=== PATIENT | female | born 1955 | race African-American/Black ===

== ENCOUNTER 2023-08-06 10:03 | Inpatient (IN) | payer MEDICARE, OTHER ==
[~2023-08-06] VITALS: Ht 167.6 cm; Wt 88.0 kg
[2023-08-06] MEDS ORDERED: IBUPROFEN 600 MG TABLET ONE (10:25)
[2023-08-06] MEDS: IBUPROFEN 400 MG TABLET PO ONE (10:30)
[2023-08-06 11:50] LABS: BASOPHILS % (AUTO) 0.2 % (0.0-2.0); EOSINOPHILS # (AUTO) 0.2 K/uL (0.0-0.7); EOSINOPHILS % (AUTO) 1.7 % (0.0-6.0); HEMATOCRIT 37 % (33-45); HEMOGLOBIN 12.2 g/dL (11.5-14.8); LYMPHOCYTES # (AUTO) 1.2 K/uL (0.8-4.8); LYMPHOCYTES % (AUTO) 13.2 % (20.0-44.0); MEAN CORPUSCULAR HEMOGLOBIN 30 PG (26.0-33.0); MEAN CORPUSCULAR HGB CONC 33 g/dl (31.0-36.0); MEAN CORPUSCULAR VOLUME 91 fL (82-100); MONOCYTES # (AUTO) 0.5 K/uL (0.1-1.30); NEUTROPHILS # (AUTO) 7.4 K/uL (1.8-8.9); NEUTROPHILS % (AUTO) 79.9 % (43.0-81.0); PLATELET COUNT (AUTO) 121 K/uL (150-450); RED BLOOD CELL COUNT(AUTO) 4.11 MIL/uL (4.0-5.2); RED CELL DISTRIBUTION WIDTH 14.5 % (11.5-15.0); WHITE BLOOD COUNT (AUTO) 9.2 K/uL (4.3-11.0)
[2023-08-06 11:58] LABS: CALCIUM, SERUM 8.3 mg/dL (8.5-10.1); CREATININE 0.9 mg/dL (0.6-1.3)
[2023-08-06] MEDS ORDERED: CT SWABBABLE VALVE TRANS SET 1 EA INFUS.SET MC ONE (12:19)
[2023-08-06] MEDS ORDERED: IOHEXOL-300 100 ML VIAL IV ONE (12:19)
[2023-08-06] MEDS ORDERED: IV NS 0.9% 250 ML IV ONE (12:19)
[2023-08-06] MEDS ORDERED: POTASSIUM CHLORIDE 20 MEQ TAB.PRT.SR PO ONE (12:31)
[2023-08-06] MEDS: POTASSIUM CHLORIDE 20 MEQ TAB.PRT.SR PO ONE (12:57)
[2023-08-06] MEDS: predniSONE 20 MG TABLET PO ONE (13:59)
[2023-08-06] MEDS ORDERED: predniSONE 20 MG TABLET ONE (13:59)
[2023-08-06] MEDS ORDERED: IPRATROPIUM NEB FS 0.5 MG/2.5 ML AMPUL.NEB ONE (14:07)
[2023-08-06] MEDS ORDERED: ALBUTEROL FS 2.5 MG/3 ML VIAL.NEB ONE (14:07)
[2023-08-06 14:12] VITALS: O2SAT 96
[2023-08-06] MEDS: ALBUTEROL FS 2.5 MG/3 ML VIAL.NEB CONTNEB ONE (14:12)
[2023-08-06] MEDS: IPRATROPIUM NEB FS 0.5 MG/2.5 ML AMPUL.NEB NEB ONE (14:12)
[2023-08-06 14:27] VITALS: O2SAT 100
[2023-08-06 14:28] VITALS: O2SAT 100
[2023-08-06] MEDS ORDERED: ACETAMINOPHEN 325 MG TABLET PO PRN (14:30)
[2023-08-06] MEDS ORDERED: MAG HYDROX/AL HYDROX/SIMETH 30 ML UDC PO PRN (14:30)
[2023-08-06] MEDS ORDERED: ONDANSETRON HCL/PF 4 MG/2 ML VIAL IVP PRN (14:30)
[2023-08-06] MEDS ORDERED: MAGNESIUM HYDROXIDE 30 ML UDC PO PRN (14:30)
[2023-08-06] MEDS ORDERED: Z GUARD REMEDY 4 OZ OINT TP PRN (14:30)
[2023-08-06 14:38] VITALS: O2SAT 100
[2023-08-06] MEDS ORDERED: METF-442 PO (14:43)
[2023-08-06] MEDS: IV NS 0.9% 1,000 ML IV PRN (15:00)
[2023-08-06] MEDS: CEFTRIAXONE 1 G in IV D5W 50 ML IV SCH (15:01)
[2023-08-06] MEDS: AZITHROMYCIN 500 MG in IV D5W 250 ML IV SCH (15:29)
[2023-08-06 16:00] VITALS: BP 152/88; TEMP 99; O2SAT 100
[2023-08-06] MEDS: ENOXAPARIN SODIUM 40 MG/0.4 ML DISP.SYRIN SQ SCH (17:57)
[2023-08-06 20:00] VITALS: BP 119/106; TEMP 98.1; O2SAT 95
[2023-08-07 07:16] LABS: BASOPHILS % (AUTO) 0.1 % (0.0-2.0); HEMATOCRIT 34 % (33-45); HEMOGLOBIN 11.6 g/dL (11.5-14.8); LYMPHOCYTES # (AUTO) 1.3 K/uL (0.8-4.8); LYMPHOCYTES % (AUTO) 15.3 % (20.0-44.0); MEAN CORPUSCULAR HEMOGLOBIN 30 PG (26.0-33.0); MEAN CORPUSCULAR HGB CONC 34 g/dl (31.0-36.0); MEAN CORPUSCULAR VOLUME 90 fL (82-100); MONOCYTES # (AUTO) 0.5 K/uL (0.1-1.30); MONOCYTES % (AUTO) 6.3 % (2.0-12.0); NEUTROPHILS # (AUTO) 6.4 K/uL (1.8-8.9); NEUTROPHILS % (AUTO) 78.3 % (43.0-81.0); PLATELET COUNT (AUTO) 126 K/uL (150-450); RED BLOOD CELL COUNT(AUTO) 3.82 MIL/uL (4.0-5.2); RED CELL DISTRIBUTION WIDTH 14.5 % (11.5-15.0); WHITE BLOOD COUNT (AUTO) 8.2 K/uL (4.3-11.0)
[2023-08-07 07:29] LABS: ALBUMIN 2.8 g/dL (3.4-5.0); BILIRUBIN,TOTAL 0.2 mg/dL (0.2-1.0); CALCIUM, SERUM 8.7 mg/dL (8.5-10.1); CREATININE 0.7 mg/dL (0.6-1.3); POTASSIUM 3.7 mmol/L (3.5-5.1); TOTAL PROTEIN, SERUM 7.4 g/dL (6.4-8.2)
[2023-08-07 08:00] VITALS: BP 133/94; TEMP 98.6; O2SAT 99
[2023-08-07] MEDS ORDERED: DEXTROSE 50%-WATER 50 ML DISP.SYRIN IV PRN (15:30)
[2023-08-07 16:00] VITALS: BP 146/67; TEMP 98.6; O2SAT 99
[2023-08-07] MEDS: K PHOS NEUTRAL 250 MG TABLET PO ONE (16:01)
[2023-08-07] MEDS: BLOOD SUGAR DIAGNOSTIC 1 EACH STRIP VI SCH (17:29)
[2023-08-07] MEDS: INSULIN REGULAR, HUMAN 100 UNIT/ML 3 ML VIAL SQ PRN (17:30)
[2023-08-07 20:00] VITALS: BP 144/97; TEMP 98.1; O2SAT 96
[2023-08-07] MEDS: *INSULIN REGULAR(HUMULIN R)HUM 100 UNIT/ML VIAL SQ PRN (22:30)
[2023-08-08 08:00] VITALS: BP 155/97; TEMP 98.4; O2SAT 95
[2023-08-08 11:11] LABS: ALBUMIN 2.5 g/dL (3.4-5.0); BILIRUBIN,DIRECT 0.1 mg/dL (0.0-0.2); BILIRUBIN,TOTAL 0.2 mg/dL (0.2-1.0); TOTAL PROTEIN, SERUM 6.5 g/dL (6.4-8.2)
[2023-08-08] MEDS: GUAIFENESIN 300 MG/15 ML UDC PO SCH (13:35)
[2023-08-08 16:00] VITALS: BP 132/91; TEMP 98.8; O2SAT 99
[2023-08-08 20:00] VITALS: BP 138/78; TEMP 98.4; O2SAT 100
[2023-08-09 08:27] VITALS: BP 152/78; TEMP 99.1; O2SAT 98
[2023-08-09] MEDS ORDERED: AMOX-430 PO (10:14)
[2023-08-09] MEDS ORDERED: AZIT500T PO (10:14)
[2023-08-09] MEDS ORDERED: AZITHROMYCIN 250 MG TABLET PO SCH (14:00)
== END 2023-08-09 14:48 | DRG 195 ==
LOC: ER 10:09 → MED 16:09
PROVIDERS: ADMIT Internal Medicine; ATTEND Internal Medicine
DX: J15.9 Unspecified bacterial pneumonia (principal); E11.9 Type 2 diabetes mellitus without complications; S70.02XA Contusion of left hip, initial encounter; W01.0XXA Fall on same level from slipping, tripping and stumbling without subsequent striking against object, initial encounter; E87.6 Hypokalemia; E66.9 Obesity, unspecified; Z79.84 Long term (current) use of oral hypoglycemic drugs; Z20.822 Contact with and (suspected) exposure to COVID-19; R74.01 Elevation of levels of liver transaminase levels; G47.33 Obstructive sleep apnea (adult) (pediatric); Z68.31 Body mass index [BMI] 31.0-31.9, adult; Y92.89 Other specified places as the place of occurrence of the external cause
CPT/HCPCS: 36415; 71045-TC; 71260-TC; 73502; 74181-TC; 76700-TC; 80048-TC; 80053-TC; 80076-TC; 82962-TC; 83735-TC; 84100-TC; 85025-TC; A4223; G0378; J0456; J0696; J1650; J1815; J7030; J7050; J7060; Q9967